=== PATIENT | female | born 1965 | race Hispanic/Latino ===

== ENCOUNTER 2021-03-27 16:28 | Inpatient (IN) | payer SELFPAY ==
[~2021-03-27] VITALS: Ht 154.9 cm; Wt 65.0 kg
[2021-03-27 17:01] LABS: BASOPHILS # (AUTO) 0.1 (0.0-0.1); BASOPHILS % 0.8 % (0.0-1.0); EOSINOPHILS # (AUTO) 0.1 (0.0-0.4); EOSINOPHILS % 0.9 % (0.0-6.0); HEMATOCRIT 43.3 % (34.2-44.1); HEMOGLOBIN 14.8 g/dL (12.0-16.0); LYMPHOCYTES # (AUTO) 2.3 (1.0-3.2); LYMPHOCYTES % 26.3 % (18.0-39.1); MEAN CORPUSCULAR HEMOGLOBIN 30.8 pg (28-32); MEAN CORPUSCULAR HGB CONC 34.2 g/dL (31-35); MONOCYTES # (AUTO) 0.3 (0.2-0.8); MONOCYTES % 3.9 % (4.4-11.3); NEUTROPHILS # (AUTO) 5.9 (2.1-6.9); NEUTROPHILS % 67.6 % (38.7-80.0); PLATELET COUNT 219 x10e3/uL (140-360); RED BLOOD COUNT 4.81 x10e6/uL (3.6-5.1); RED CELL DISTRIBUTION WIDTH 12.4 % (11.7-14.4)
[2021-03-27 17:20] LABS: ALBUMIN 4.1 g/dL (3.5-5.0); ALBUMIN/GLOBULIN RATIO 1.1 (0.8-2.0); ANION GAP 13.4 mmol/L (8-16); CALCIUM 9.9 mg/dL (8.4-10.2); CREATININE, SERUM 0.78 mg/dL (0.57-1.11); POTASSIUM 2.4 mmol/L (3.5-5.1)
[2021-03-27] MEDS ORDERED: POTASSIUM CHLORIDE 20 MEQ TAB CR PO SCH (17:30)
[2021-03-27] MEDS ORDERED: POTASSIUM CHLORIDE 10MEQ/100ML 100 ML IV ONE (17:30)
[2021-03-27] MEDS ORDERED: SODIUM CHLORIDE 0.9% 100 ML ONE (17:51)
[2021-03-27] MEDS ORDERED: IOPAMIDOL 370 MG/ML 200 ML INFUS..BTL INJ ONE (17:52)
[2021-03-27] MEDS ORDERED: HYDRALAZINE HCL 20 MG/ML VIAL IV STA (18:39)
[2021-03-27] MEDS ORDERED: POTASSIUM CHLORIDE 20 MEQ TAB CR PO STA (18:55)
[2021-03-27] MEDS ORDERED: NICARDIPINE 20MG/200ML PREMIX 200 ML IV SCH (20:00)
[2021-03-27] MEDS: SODIUM CHLORIDE 0.9% 1000ML 1,000 ML IV SCH (20:39)
[2021-03-28 06:21] LABS: BASOPHILS # (AUTO) 0.1 (0.0-0.1); BASOPHILS % 1.1 % (0.0-1.0); EOSINOPHILS # (AUTO) 0.1 (0.0-0.4); EOSINOPHILS % 0.7 % (0.0-6.0); HEMOGLOBIN 15.4 g/dL (12.0-16.0); LYMPHOCYTES # (AUTO) 2.1 (1.0-3.2); LYMPHOCYTES % 25.6 % (18.0-39.1); MEAN CORPUSCULAR HEMOGLOBIN 31.1 pg (28-32); MEAN CORPUSCULAR VOLUME 88.9 fL (81-99); MONOCYTES # (AUTO) 0.6 (0.2-0.8); MONOCYTES % 7.1 % (4.4-11.3); NEUTROPHILS # (AUTO) 5.3 (2.1-6.9); PLATELET COUNT 228 x10e3/uL (140-360); RED BLOOD COUNT 4.95 x10e6/uL (3.6-5.1); RED CELL DISTRIBUTION WIDTH 12.7 % (11.7-14.4)
[2021-03-28 06:44] LABS: ALBUMIN 3.9 g/dL (3.5-5.0); ANION GAP 13.9 mmol/L (8-16); CALCIUM 9.5 mg/dL (8.4-10.2); CREATININE, SERUM 0.74 mg/dL (0.57-1.11)
[2021-03-28 06:47] LABS: POTASSIUM 2.9 mmol/L (3.5-5.1)
[2021-03-28] MEDS ORDERED: HYDRALAZINE HCL 20 MG/ML VIAL IV PRN (07:00)
[2021-03-28] MEDS: SODIUM CHLORIDE 0.9% 1000ML 1,000 ML IV SCH ×4 (08:13→23:46)
[2021-03-28] MEDS: POTASSIUM CHLORIDE 20 MEQ TAB CR PO SCH ×4 (16:47→23:46)
[2021-03-28] MEDS ORDERED: LISINOPRIL-HCT1 EACH PO (20:48)
[2021-03-28] MEDS ORDERED: CLONIDINE HCL0.2 MG PO (20:48)
[2021-03-28 21:00] VITALS: BP 162/89
[2021-03-28 21:27] VITALS: BP 175/73
[2021-03-29] VITALS (12 sets, daily range): BP systolic 129–206; BP diastolic 65–92
[2021-03-29] MEDS: POTASSIUM CHLORIDE 20 MEQ TAB CR PO SCH (00:35)
[2021-03-29] MEDS: SODIUM CHLORIDE 0.9% 1000ML 1,000 ML IV SCH (07:59)
[2021-03-29] MEDS ORDERED: POTASSIUM CHLORIDE 20 MEQ TAB CR PO ONE (09:15)
[2021-03-29 09:31] LABS: BASOPHILS % 0.6 % (0.0-1.0); EOSINOPHILS # (AUTO) 0.2 (0.0-0.4); EOSINOPHILS % 3.4 % (0.0-6.0); HEMATOCRIT 40.1 % (34.2-44.1); HEMOGLOBIN 13.3 g/dL (12.0-16.0); LYMPHOCYTES # (AUTO) 1.8 (1.0-3.2); LYMPHOCYTES % 28.5 % (18.0-39.1); MEAN CORPUSCULAR HEMOGLOBIN 30.6 pg (28-32); MEAN CORPUSCULAR HGB CONC 33.2 g/dL (31-35); MEAN CORPUSCULAR VOLUME 92.4 fL (81-99); MONOCYTES # (AUTO) 0.4 (0.2-0.8); MONOCYTES % 5.6 % (4.4-11.3); NEUTROPHILS # (AUTO) 3.8 (2.1-6.9); NEUTROPHILS % 61.6 % (38.7-80.0); PLATELET COUNT 201 x10e3/uL (140-360); RED BLOOD COUNT 4.34 x10e6/uL (3.6-5.1); RED CELL DISTRIBUTION WIDTH 12.9 % (11.7-14.4)
[2021-03-29] MEDS ORDERED: POTASSIUM CHLORIDE 20 MEQ TAB CR PO SCH (10:00)
[2021-03-29 10:30] LABS: ALBUMIN 3.5 g/dL (3.5-5.0); ALBUMIN/GLOBULIN RATIO 1.1 (0.8-2.0); ANION GAP 13.9 mmol/L (8-16); CALCIUM 8.6 mg/dL (8.4-10.2); CREATININE, SERUM 0.77 mg/dL (0.57-1.11)
[2021-03-29 10:34] LABS: POTASSIUM 2.9 mmol/L (3.5-5.1)
[2021-03-29] MEDS ORDERED: ADVIL200 MG PO (14:17)
[2021-03-29] MEDS ORDERED: GADOBENATE DIMEGLUMINE 1 ML IV ONE (14:33)
[2021-03-29] MEDS ORDERED: CLONIDINE HCL 0.2 MG TAB PO SCH (17:00)
[2021-03-29] MEDS ORDERED: AMLODIPINE BESYLATE 10 MG TAB PO SCH (17:30)
[2021-03-29] MEDS ORDERED: DEXAMETHASONE SOD PHOS INJ 4 MG/ML SDV IV SCH (18:00)
[2021-03-29] MEDS ORDERED: NICARDIPINE 20MG/200ML PREMIX 200 ML IV SCH (18:15)
[2021-03-29] MEDS ORDERED: METOPROLOL TARTRATE INJ 1 MG/ML VIAL IV PRN (19:30)
[2021-03-29] MEDS ORDERED: HYDRALAZINE HCL 20 MG/ML VIAL IV PRN (19:30)
[2021-03-30] MEDS ORDERED: HYDROCHLOROTHIAZIDE 25 MG TAB PO SCH (09:00)
[2021-03-30] MEDS ORDERED: LISINOPRIL 20 MG TAB PO SCH (09:00)
== END 2021-03-29 22:00 | disposition short-term general hospital (02) | DRG 64 ==
LOC: ER 16:32 → ERHOLD 18:41 → MED/SURG3 03-28 20:27 → ICU 03-29 18:12
PROVIDERS: ADMIT Family Medicine; ATTEND Family Medicine
DX: I61.3 Nontraumatic intracerebral hemorrhage in brain stem (principal); G93.6 Cerebral edema; I16.9 Hypertensive crisis, unspecified; H49.03 Third [oculomotor] nerve palsy, bilateral; H02.402 Unspecified ptosis of left eyelid; I10 Essential (primary) hypertension; Z20.822 Contact with and (suspected) exposure to COVID-19; E87.6 Hypokalemia
CPT/HCPCS: 36415; 70496; 70498; 70540; 70553; 80053; 84132; 85025; 85651; 86140; 93005; 99284; J0360; J1100; J3480; J7030; J7050; Q9967; U0002